=== PATIENT | female | born 1945 | race Caucasian/White ===

== ENCOUNTER 2019-02-05 09:30 | Emergency (ER) | payer SELFPAY ==
[~2019-02-05] VITALS: Ht 157.5 cm; Wt 58.1 kg
[2019-02-05 09:33] VITALS: Ht 157.5 cm; Wt 58.1 kg
[2019-02-05 11:06] VITALS: BP 141/87
== END 2019-02-05 11:06 | disposition home or self-care (01) ==
LOC: ED 09:30
DX: B02.9 Zoster without complications (principal)